=== PATIENT | female | born 1980 | race Caucasian/White ===

== ENCOUNTER 2016-11-24 21:05 | Emergency (ER) | payer OTHER ==
[2016-11-24 21:14] VITALS: TEMP 98.6; O2SAT 99
[2016-11-24] MEDS ORDERED: LET GEL TOPICAL 1 EA SYR TP ONE ×2 (21:29→22:00)
--- NOTE | 2016-11-24 21:59 | EDPHY ---
H & P Time Seen by Provider: 11/24/16 21:50 HPI/ROS: CHIEF COMPLAINT: Right index finger injury HISTORY OF PRESENT ILLNESS: 36-year-old female with out-of-date tetanus accidentally stuck her right index finger into moving air conditioner if and sustaining multiple lacerations to her index finger. No amputation. No paresthesia. Full sensation. PHYSICAL EXAM (Prior to examination, patient consented to physical exam, hands were washed and my usual and customary physical exam procedures followed) 1) GENERAL: Well-developed, well-nourished, alert and oriented. Appears to be in no acute distress. 2) HEAD: Normocephalic 3) HEENT: sclera anicteric 4) LUNGS: Breathing comfortably. 5) SKIN: on the right index finger there are multiple superficial abrasions and a a more prominent laceration measuring 1.5 cm on the volar aspect of the distal phalanx 6) MUSCULOSKELETAL: right index finger multiple abrasion in multiple discrete lacerations, total length of all lacerations is 4 cm cumulative . Flexor extensor function independently tested at the MCP PIP D IP no no deficits appreciated on exam. No malrotation. Normal cascading of digit. 7) NEUROLOGIC: Full sensation Smoking Status: Never smoked Constitutional: Initial Vital Signs Temperature (C) 37 C 11/24/16 21:12 Heart Rate 61 11/24/16 21:12 Respiratory Rate 16 11/24/16 21:12 Blood Pressure 103/64 11/24/16 21:12 O2 Sat (%) 99 11/24/16 21:12 O2 Delivery Mode Room Air Allergies/Adverse Reactions: No Known Allergies Allergy (Unverified 11/24/16 21:11) Home Medications: Medication Instructions Recorded Cephalexin [Keflex] 500 mg PO TID 5 Days 11/24/16 MDM/Departure - MDM Imaging Results: Imaging Impressions Finger X-Ray 11/24/16 21:57 Impression: No acute osseous findings. Images reviewed by myself Procedures: Procedure: Laceration repair. I explained the indications, risks and benefits for both laceration repair and anesthetic administration. Verbal consent was obtained from the patient . The laceration on the right index finger was anesthetized using 0.5% bupivicaine without epinephrine digital nerve block. After anesthetic administered the patient was observed for a period of time and had no apparent adverse effects. The wound was cleaned, prepped, draped in normal sterile fashion and explored to its base. No foreign body seen, no foreign bodies palpated. There were no deep structures involved. No tendon injury was identified. The wounds repair with a total of 9 simple interrupted 5 O Prolene suture. The wound repair was simple. The procedure was performed by myself. Patient has been informed that scarring will occur, although efforts have been made to minimize this. Bulky sterile dressing applied by ER staff Medications Given: Discontinued Medications Tetracaine/Epinephrine/Lidocaine (Let Gel Topical) 1 ea TP EDNOW ONE Stop: 11/24/16 22:01 Last Admin: 11/24/16 22:00 Dose: 1 ea - Depart Disposition: Home, Routine, Self-Care Clinical Impression: Laceration of right index finger Condition: Good Instructions: Laceration (ED), Cephalexin (By mouth) Additional Instructions: Return to the ER if you develop redness, swelling, discharge, warmth to the wound, red streaks going up your arm , or any other symptoms that concern you. Prescriptions: Cephalexin [Keflex] 500 mg PO TID 5 Days Referrals: Return, to the ER in 10 days for suture removal [Other] - As per Instructions
[2016-11-24] MEDS ORDERED: TDAP ADULT 0.5 ML INJ (BOOSTRIX) IM ONE (22:03)
[2016-11-24] MEDS ORDERED: LORazepam 1 MG TAB PO ONE (22:03)
[2016-11-24] MEDS ORDERED: CEPHALEXIN 500MG PREPACK#4 BTL TAKEHOME ONE (22:50)
[2016-11-24 22:56] VITALS: BP 107/63; PULSE 65; RESP 14
== END 2016-11-24 23:13 | disposition home or self-care (01) ==
PROC: 0HQFXZZ Repair Right Hand Skin, External Approach (ICD-10-PCS; principal; 2016-11-24)
DX: S61.210A Laceration without foreign body of right index finger without damage to nail, initial encounter (principal); W23.0XXA Caught, crushed, jammed, or pinched between moving objects, initial encounter